=== PATIENT | male | born 1940 | race Caucasian/White ===

== ENCOUNTER 2019-01-02 17:52 | Emergency (ER) | payer OTHER, BC ==
[2019-01-02 17:57] VITALS: BMI 23.4
--- NOTE | 2019-01-02 18:43 | PDOC ---
History of Present Illness - General Chief Complaint: Pain Stated Complaint: PAIN History Source: Patient Exam Limitations: No Limitations - History of Present Illness Initial Comments: 01/02/19 18:26 Patient is a 78 year old male with h/o BPH with TURP 7 months ago here with c/o pain in his testicles bilaterally, pain radiating to his abdomen and down his thighs x3 days. His pain is 8/10 continuous, sharp. States feels weak and has a decreased appetite since yesterday. States no fever but he has felt hot. He was seen by his PMD 2 days ago. States urine and labs were done but results are still pending. He was given an appointment for urologist on 1024 and for ultrasound on 1022. Patient states that his doctor sent a prescription to his pharmacy for antibiotics and pain but there was nothing at the pharmacy when he went to pick it up. Denies nausea, vomiting, dysuria. PMD: Dr. Norris PMHX: As above PSOCHX: (+) Smoker, neg etoh, neg drug ALL: NKDA GENERAL/CONSTITUTIONAL: [No fever or chills. No weakness. No weight change.] HEAD, EYES, EARS, NOSE AND THROAT: [No change in vision. No ear pain or discharge. No sore throat.] CARDIOVASCULAR: [No chest pain or shortness of breath.] RESPIRATORY: [No cough, wheezing, or hemoptysis.] GASTROINTESTINAL: [No nausea, vomiting, diarrhea or constipation. No rectal bleeding.] GENITOURINARY: [No dysuria, frequency, or change in urination.] MUSCULOSKELETAL: [No joint, (+) muscle pain. No neck or back pain.] SKIN AND BREASTS: [No rash or easy bruising.] NEUROLOGIC: [No headache, vertigo, loss of consciousness, or loss of sensation.] PSYCHIATRIC: [No depression or anxiety.] ENDOCRINE: [No increased thirst. No abnormal weight change.] HEMATOLOGIC/LYMPHATIC: [No anemia, easy bleeding, or history of blood clots.] ALLERGIC/IMMUNOLOGIC: [No hives or skin allergy. No latex allergy.] GENERAL: [The patient is awake, alert, and fully oriented, in no acute distress. ] HEAD: [Normal with no signs of trauma.] EYES: [Pupils equal, round and reactive to light, extraocular movements intact, sclera anicteric, conjunctiva clear.] ENT: [Ears normal, nares patent, oropharynx clear without exudates. Moist mucous membranes.] NECK: [Normal range of motion, supple without lymphadenopathy, JVD, or masses.] LUNGS: [Breath sounds equal, clear to auscultation bilaterally. No wheezes, and no crackles.] HEART: [Regular rate and rhythm, normal S1 and S2 without murmur, rub.] ABDOMEN: [Soft, (+) mild lower abd tenderness, normoactive bowel sounds. No guarding, no rebound. No masses.] : Uncircumcised, testicle bilaterally mildly tender, no swelling EXTREMITIES: [Normal range of motion, no edema. No clubbing or cyanosis. No cords, erythema, or tenderness.] NEUROLOGICAL: [Cranial nerves II through XII grossly intact. Normal speech, normal gait.] PSYCH: [Normal mood, normal affect.] SKIN: [Warm, Dry, normal turgor, no rashes or lesions noted.] Past History - Past Medical History Allergies/Adverse Reactions: Allergies Allergy/AdvReac Type Severity Reaction Status Date / Time No Known Allergies Allergy Verified 01/02/19 17:57 Home Medications: Ambulatory Orders Levofloxacin [Levaquin] 500 mg PO DAILY #9 tablet 01/02/19 Meloxicam [Mobic (Nf) -] 15 mg PO DAILY #14 tablet 01/02/19 COPD: No - Surgical History Abdominal Surgery: Yes (HERNIA) - Psycho Social/Smoking Cessation Hx Smoking History: Never smoked *Physical Exam - Vital Signs Last Vital Signs Temp Pulse Resp BP Pulse Ox 99.4 F 110 H 18 123/60 96 01/02/19 17:53 01/02/19 17:53 01/02/19 17:53 01/02/19 17:53 01/02/19 17:53 ED Treatment Course - LABORATORY CBC & Chemistry Diagram: 01/02/19 19:40 01/02/19 19:40 Medical Decision Making - Medical Decision Making 01/02/19 18:26 Patient is a 78 year old male with h/o BPH with TURP 7 months ago here with c/o pain in his testicles bilaterally, pain radiating to his abdomen and down his thighs x3 days. His pain is 8/10 continuous, sharp. States feels weak and has a decreased appetite since yesterday. States no fever but he has felt hot. He was seen by his PMD 2 days ago. States urine and labs were done but results are still pending. He was given an appointment for urologist on 1024 and for ultrasound on 1022. Patient states that his doctor sent a prescription to his pharmacy for antibiotics and pain but there was nothing at the pharmacy when he went to pick it up. Denies nausea, vomiting, dysuria. Patient noted to be tachycardic and slightly low-grade temp. will initiate a work-up including which included blood cultures DDX: Prostatitis, cystocele, varicocele, diverticulitis. Labs, UA CT scan abdomen pelvis with IV contrast Ultrasound scrotal. Reassess Labs reviewed noted to have WBC of 19, lactic acid added and is negative. Also noted a sodium of 133 Patient was given 1-1/2 L of IV fluid Reassessment; patient feels improved still continues to have pain will give Toradol 15 mg IV. Reviewed the CT scan and ultrasound noted patient had to have orchitis. Based on the literature and the fact that patient had recent BPH surgery will give Levaquin 500 mg p.o. 01/02/19 22:27 Patient Full Name: SOPHIE MONSALVE Patient Accession No: [id number] Patient : 1940 Reason for Exam: abdominal pain Referring Physician: Patient Name: BELLO BARRIOS THIS IS A PRELIMINARY REPORT FROM [facility] FORMER DATE OF SERVICE: 2019-01-02 20:50:08 IMAGES: [id number] EXAM: CT abdomen and pelvis with IV contrast. Clinical indication: Abdominal pain. There are no prior studies available for comparison. Technique: Axial IV contrast-enhanced CT images of the abdomen and pelvis were obtained followed by coronal and sagittal reformats. Findings: The visualized portions of the lower thorax are within normal limits. There is no free intra-abdominal gas or fluid. The liver, gallbladder, adrenals, pancreas, and spleen are normal. There is no hydronephrosis or renal calculi bilaterally. There is a right-sided simple renal cortical cyst. The bilateral kidneys are otherwise normal. The infrarenal abdominal aorta is ectatic measuring 2.7 cm in diameter. There are no enlarged abdominal or pelvic lymph nodes, by size criteria. The urinary bladder is within normal limits. The appendix is normal. The bowel is unremarkable. There is multilevel lumbar degenerative disc disease. The remainder of the visualized bony structures are unremarkable for the patient's age. Impression: 1. Ectatic infrarenal abdominal aorta. 2. Otherwise, unremarkable CT of the abdomen and pelvis. One or more of the following dose reduction techniques were used: automated exposure control, adjustment of the mA and/or kV according to patient size, use of iterative reconstructive technique. THIS DOCUMENT HAS BEEN ELECTRONICALLY SIGNED Kurt Sousa MD 01/02/2019 21:45 ANCIENT ART CURATOR M.D. Please call [facility] [phone] with questions. INTERPRETING RADIOLOGIST: Kurt Sousa MD Electronically Signed: Jan 02, 2019 09:46PM EDT Patient Full Name: SOPHIE MONSALVE Patient Accession No: [id number] Patient : 1940 Reason for Exam: testicular pain Referring Physician: Patient Name: BELLO BARRIOS THIS IS A PRELIMINARY REPORT FROM [facility] FORMER DATE OF SERVICE: 2019-01-02 20:23:51 IMAGES: [id number] EXAM: Bilateral scrotal sonogram. Clinical indication: Testicular pain. There are no prior studies available for comparison. Findings: [id number] color Doppler duplex images of the bilateral testicles demonstrate some hyperemia within the right testicle. The right testicle measures 4.0 x 2.8 x 1.9 cm in diameter and hasn't unremarkable sonographic appearance without focal abnormality. Color Doppler duplex interrogation of the right testicle demonstrates flow throughout but again appears hyperemic. The right epididymis contains a small simple epididymal cyst within the head. There also appears to be some hyperemia within the right epididymis. There is no right-sided hydrocele. The left testicle measures 3.4 x 2.3 x 1.9 cm in diameter and has not unremarkable sonographic appearance without focal abnormality. There is color Doppler duplex interrogation of the left testicle demonstrates flow throughout. Although, the flow also appears somewhat hyperemic. The left epididymis is unremarkable. There is no left-sided hydrocele. There is no evidence of varicoceles bilaterally. Impression: 1. Hyperemia involving the right testicle and epididymis suggesting right-sided epididymal orchitis. Clinical correlation is recommended. 2. Otherwise, unremarkable bilateral scrotal sonogram. THIS DOCUMENT HAS BEEN ELECTRONICALLY SIGNED Kurt Sousa MD 01/02/2019 21:15 ANCIENT ART CURATOR Odalys. Please call [facility] [phone] with questions. INTERPRETING RADIOLOGIST: Kurt Sousa MD Electronically Signed: Jan 02, 2019 09:16PM EDT Selected Entries 01/03/19 00:15 Temperature 97.9 F Pulse Rate [ 99 H Left] Respiratory 15 Rate Blood Pressure 147/60 [Right Arm] O2 Sat by Pulse 98 Oximetry (%) I discussed the physical exam findings, ancillary test results and final diagnoses with the patient. I answered all of the patient's questions. The patient was satisfied with the care received and felt comfortable with the discharge plan and treatment plan. The Patient agrees to follow up with the primary care physician within 24-72 hours. Discharge - Discharge Information Problems reviewed: Yes Clinical Impression/Diagnosis: Orchitis Condition: Stable Disposition: HOME - Additional Discharge Information Prescriptions: Levofloxacin [Levaquin] 500 mg PO DAILY #9 tablet Meloxicam [Mobic (Nf) -] 15 mg PO DAILY #14 tablet - Follow up/Referral - Patient Discharge Instructions Additional Instructions: Your Discharge Instructions: You must call primary care physician within 24 hours to arrange follow-up. Return to the Emergency Department with any new, persistent or worsening symptoms, for fever, chills, SOB, dizziness or any other concerning changes that may occur. Keep your appointment with your urologist for January 07. - Post Discharge Activity
[2019-01-02 19:40] LABS: EPI CELLS 4.7 /HPF (0-5/HPF); HYALINE CASTS 85 /lpf (0-8); URINE APPEARANCE CLOUDY; URINE BACTERIA 1.4 /hpf (NEGATIVE); URINE BILIRUBIN 1+ (NEGATIVE); URINE COLOR DK YELLOW; URINE GLUCOSE (UA) NEGATIVE (NEGATIVE); URINE KETONE NEGATIVE (NEGATIVE); URINE LEUK ESTERASE TRACE (NEGATIVE); URINE NITRITE NEGATIVE (NEGATIVE); URINE PROTEIN 2+ (NEGATIVE); URINE RBC 11 /hpf (0-4); URINE WBC 2 /hpf (0-5)
[2019-01-02 20:02] LABS: BASO % 0.3 % (0-2.0); EOS % 0.1 % (0-4.5); HEMATOCRIT 40.5 % (35.4-49); HEMOGLOBIN 13.5 GM/dL (11.7-16.9); LYMPH % 3.9 % (8-40); MCH 30.8 pg (25.7-33.7); MCHC 33.4 g/dl (32.0-35.9); MEAN CELL VOLUME 92.4 fl (80-96); MEAN PLT VOLUME 9.5 fl (7.5-11.1); MONO % 12.2 % (3.8-10.2); NEUT % 83.5 % (42.8-82.8); PLATELET COUNT 226 K/MM3 (134-434); RBC 4.38 M/mm3 (4.00-5.60); RDW 14.6 % (11.9-15.9)
[2019-01-02 20:20] LABS: ALBUMIN 2.5 g/dl (3.4-5.0); BILIRUBIN,TOTAL 0.5 mg/dL (0.2-1); BLOOD UREA NITROGEN 17.1 mg/dL (7-18); CALCIUM 7.8 mg/dL (8.5-10.1); POTASSIUM 3.7 mmol/L (3.5-5.1); TOT PROT 6.7 g/dl (6.4-8.2)
[2019-01-02] MEDS ORDERED: SODIUM CHLORIDE 0.9% 500 ML INFUS.BAG IV ONE (20:33)
[2019-01-02] MEDS ORDERED: KETOROLAC TROMETHAMINE 15 MG/ML VIAL IVPUSH ONE (23:45)
[2019-01-03] MEDS ORDERED: KETOROLAC TROMETHAMINE 15 MG/ML VIAL ONE (00:14)
[2019-01-03 00:16] VITALS: BP 147/60; PULSE 99; TEMP 97.9
== END 2019-01-03 00:25 | disposition home or self-care (01) ==
LOC: JER 17:52
PROC: 3E0333Z Introduction of Anti-inflammatory into Peripheral Vein, Percutaneous Approach (ICD-10-PCS; principal; 2019-01-02)
DX: N45.2 Orchitis (principal); N40.0 Benign prostatic hyperplasia without lower urinary tract symptoms
CPT/HCPCS: 36415; 74177-TC; 76870-TC; 80053; 81003; 83605; 85025; 87040; 87086; 96374; 99284-25; Q9967